=== PATIENT | male | born 1975 | race Caucasian/White ===

== ENCOUNTER 2017-04-22 07:00 | Emergency (ER) | payer BC ==
[2017-04-22] MEDS ORDERED: Bacitracin/Neomycin/Polymyxin B Oint 0.9 GM U/D Packet ONE (07:37)
[2017-04-22] MEDS ORDERED: Bacitracin/Neomycin/Polymyxin B Oint 0.9 GM U/D Packet TOP ONE (07:40)
--- NOTE | 2017-04-22 07:57 | EDM.PDOC ---
ED HPI GENERAL MEDICAL PROBLEM - General Chief Complaint: Laceration Stated Complaint: right hand laceration Time Seen by Provider: 04/22/17 07:30 Source of Information: Reports: Patient History Limitations: Reports: No Limitations - History of Present Illness INITIAL COMMENTS - FREE TEXT/NARRATIVE: Patient is a 41-year-old gentleman who was going hunting reached across his vehicle to get his bow case scrape the dorsal aspect of his hands with a broad tip I arrow causing a 3 cm laceration of skin Onset: Today Duration: Minutes:, Other (Bleeding control prior to me arriving) Location: Reports: Upper Extremity, Right, Other (Patient is left-handed dominant providing) Quality: Reports: Ache Severity: Mild Improves with: Reports: None Worsens with: Reports: None Context: Reports: Trauma Treatments [employer]: Reports: Dressing(s) Right Hand Pain Score (Numeric/FACES): 1 - Related Data Allergies Allergy/AdvReac Type Severity Reaction Status Date / Time No Known Allergies Allergy Verified 04/22/17 07:00 Home Meds: Home Meds . [No Known Home Meds] 04/22/17 [History] Past Medical History Musculoskeletal History: Reports: Back Pain, Chronic - Past Surgical History HEENT Surgical History: Reports: Other (See Below) Other HEENT Surgeries/Procedures: [place] teeth removal x 4 Social & Family History - Tobacco Use Smoking Status *Q: Never Smoker - Caffeine Use Caffeine Use: Reports: Coffee, Soda - Recreational Drug Use Recreational Drug Use: No ED ROS GENERAL - Review of Systems Review Of Systems: See Below Constitutional: Reports: No Symptoms HEENT: Reports: No Symptoms Respiratory: Reports: No Symptoms Cardiovascular: Reports: No Symptoms Endocrine: Reports: No Symptoms GI/Abdominal: Reports: No Symptoms : Reports: No Symptoms Musculoskeletal: Reports: Hand Pain Skin: Reports: Other (Laceration dorsal aspect of right hand) Neurological: Reports: No Symptoms Psychiatric: Reports: No Symptoms ED EXAM, SKIN/RASH Exam: See Below Exam Limited By: No Limitations General Appearance: Alert, WD/WN, No Apparent Distress Ears: Normal External Exam, Normal Canal, Hearing Grossly Normal, Normal TMs Nose: Normal Inspection, Normal Mucosa, No Blood Throat/Mouth: Normal Inspection, Normal Lips, Normal Teeth, Normal Gums, Normal Oropharynx, Normal Voice, No Airway Compromise Head: Atraumatic, Normocephalic Neck: Normal Inspection, Supple, Non-Tender, Full Range of Motion Respiratory/Chest: No Respiratory Distress, Lungs Clear, Normal Breath Sounds, No Accessory Muscle Use, Chest Non-Tender Cardiovascular: Normal Peripheral Pulses, Regular Rate, Rhythm, No Edema, No Gallop, No JVD, No Murmur, No Rub GI/Abdominal: Normal Bowel Sounds, Soft, Non-Tender, No Organomegaly, No Distention, No Abnormal Bruit, No Mass (Male) Exam: Deferred Rectal (Males) Exam: Normal Exam, Normal Rectal Tone, Prostate Normal Back Exam: Normal Inspection, Full Range of Motion, NT Extremities: Normal Inspection, Normal Range of Motion, No Pedal Edema, Normal Capillary Refill Neurological: Alert, Oriented, CN II-XII Intact, Normal Cognition, Normal Gait, Normal Reflexes, No Motor/Sensory Deficits. No: Sensory/Motor Deficit Psychiatric: Normal Affect, Normal Mood Skin: Other (Clean laceration 3 cm dorsal aspect of hand) Lymphatic: No Adenopathy ED SKIN PROCEDURES - Laceration/Wound Repair Right Lower Dorsal Hand Appearance: Superficial, Clean Distal NVT: Neuro & Vascular Intact Anesthetic Type: Local Local Anesthesia - Lidocaine (Xylocaine): 1% Plain Local Anesthetic Volume: 4cc Skin Prep: Chlorhexidine (Hibiciens) Exploration/Debridement/Repair: Wound Explored, In a Bloodless Field, No Foreign Material Found Closed with: Sutures Suture Size: 4-0 Suture Type: Nylon Course - Vital Signs Last Recorded V/S: Last Vital Signs Temp 98.4 F 04/22/17 07:07 Pulse 78 04/22/17 07:07 Resp 16 04/22/17 07:07 BP 173/96 H 04/22/17 07:07 Pulse Ox 100 04/22/17 07:07 - Orders/Labs/Meds Meds: Medications Discontinued Medications Generic Name Dose Route Start Last Admin Trade Name Sarah PRN Reason Stop Dose Admin Lidocaine HCl Confirm 04/22/17 07:26 04/22/17 07:45 Xylocaine-Mpf 1% Administered 04/22/17 07:27 Not Given Dose 5 ml .ROUTE .STK-MED ONE Lidocaine HCl 5 ml 04/22/17 07:40 04/22/17 07:45 Xylocaine-Mpf 1% INJECT 04/22/17 07:41 5 ml ONETIME ONE Administration Neomycin/Polymyxin/Bacitracin 1 each 04/22/17 07:40 04/22/17 07:41 Triple Antibiotic Oint TOP 04/22/17 07:41 1 each ONETIME ONE Administration Neomycin/Polymyxin/Bacitracin Confirm 04/22/17 07:37 04/22/17 07:45 Triple Antibiotic Oint Administered 04/22/17 07:38 Not Given Dose 1 each .ROUTE .STK-MED ONE Departure - Departure Time of Disposition: 08:04 Disposition: Home, Self-Care 01 Condition: Fair Clinical Impression: Laceration of hand Qualifiers: Encounter type: initial encounter Foreign body presence: without foreign body Laterality: right Qualified Code(s): S61.411A - Laceration without foreign body of right hand, initial encounter - Discharge Information Referrals: PCP,None [Primary Care Provider] - Forms: ED Department Discharge Care Plan Goals: Patient will be released home with a standard handout wound care patient's tetanus is up-to-date sent home with Keflex 501 tablet every 6 hours or 2 tablets twice a day follow-up with primary for suture removal in 10 days return if any signs of infection such as redness fever increase tenderness
[2017-04-22] MEDS ORDERED: Nitroglycerin 0.4 MG Tab.SL ONE (09:06)
[2017-04-22] MEDS ORDERED: Aspirin 81 MG Tab.Chew ONE (09:16)
[2017-04-22] MEDS ORDERED: Metoprolol Tartrate 5 MG/5 ML SDV ONE (09:41)
== END 2017-04-22 08:14 | disposition home or self-care (01) ==
LOC: LL.ED 07:00
DX: S61.411A Laceration without foreign body of right hand, initial encounter (principal); W26.8XXA Contact with other sharp object(s), not elsewhere classified, initial encounter
CPT/HCPCS: 12002; 99283